=== PATIENT | female | born 1985 | race African-American/Black ===

== ENCOUNTER 2016-08-08 19:15 | Emergency (ER) | payer OTHER ==
[~2016-08-08 19:15] MED LIST: COG1 PO; ZIPR80CA PO
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
[2016-08-08 19:42] VITALS: BP 117/88; PULSE 115; RESP 24; O2SAT 99
== END 2016-08-08 20:04 ==
LOC: SED 19:15
DX: Z02.89 Encounter for other administrative examinations (principal)

== ENCOUNTER 2016-08-09 13:35 | Emergency (ER) | payer OTHER ==
[2016-08-09 13:38] VITALS: BP 127/89; PULSE 130; RESP 26; O2SAT 100
--- NOTE | 2016-08-09 14:37 | ED.REPORT ---
HPI-Psychiatric Illness Date of Service Aug 09, 2016 ED Provider: Doc,Ed MD History of Present Illness: non verbal, refuses to take the ativan, or any medication Sent because HR in [facility] was 144. In ER HR is 130 to 114 Nursing Notes Stated Complaint: MEDICAL CLEARANCE Chief Complaint: General Complaint Nursing Notes Reviewed: Yes Allergies: Coded Allergies: No Known Drug Allergies (Verified Allergy, Unknown, 01/06/12) Scheduled Ziprasidone-Expunged Drug, Do Not Renew! (Geodon-Expunged Drug, Do Not Renew!) 80 Mg Capsule 80 MG PO BID Scheduled PRN Benztropine Mes-Expunged Drug, Do Not Renew! (Benztropine Mes-Expunged Drug, Do Not Renew!) 1 Mg Tablet 1 MG PO Q8 PRN PRN take as needed for severe muscle spasms every 8 hours and advise your Dr if px continues General Time Seen by MD: 14:36 Chief Complaint Bizarre behavior Hx Obtained From: Police Onset Occurred: Yesterday Risk-Psychiatric Illness Risk Notes: unable to assess Suicide Risk Stratification RF Statements: Risk factors reviewed Past Medical History Past Medical History unable to obtain, patient is choosing non verbal Ambulatory Status Independent Review of Systems Unable to Obtain ROS Uncooperative Physical Exam Initial Vital Signs Vital Signs (First) Date Time Temp Pulse Resp B/P Pulse Ox O2 Delivery O2 Flow Rate FiO2 08/09/16 13:38 37.7 130 26 127/89 100 Room Air Initial VS: Reviewed, Vital signs abnormal Head / Eyes: Atraumatic, Normocephalic, PERRL ENT: Mucous membranes moist, Conjunctiva normal, No scleral icterus Neck: Supple, Non-tender, Full range of motion Respiratory: Breath sounds normal, Clear to auscultation, No respiratory distress Cardiovascular: Regular rate & rhythm, Heart sounds normal, Intact distal pulses Abdomen / GI: Soft, Non-tender, No guarding, No rebound, No distention Back: No CVA tenderness Lymphatic: No lymphadenopathy Extremities: Vascular intact, Neuro intact, No swelling, No tenderness Skin: Warm, Dry, No cyanosis General/Constitutional: Awake, Alert, No acute distress, Well appearing, Well developed, Well hydrated, Well nourished patient is now speaking but is not responding appropriately Abnormal Mood/Affect: Positive: Flat affect Respiratory / Chest: Atraumatic, Breath sounds NL, Breath sounds = bilat, No respiratory distress Cardiovascular: Heart rate NL, Regular rhythm, Heart sounds NL, No gallop Interpretation & Diagnostics Lab Results Interpretation Result Diagram: 08/09/16 1540 08/09/16 1540 Test 08/09/16 15:40 White Blood Count 16.5th/mm3 (3.8-10.1) Red Blood Count 4.98mil/mm3 (3.90-5.20) Hemoglobin 12.2g/dL (12.0-15.6) Hematocrit 38.8% (35.0-46.0) Mean Corpuscular Volume 77.9fL (81-100) Mean Corpuscular Hemoglobin 24.5pg (27.0-35.0) Mean Corpuscular Hemoglobin Concent 31.4% (32.0-37.0) Red Cell Distribution Width 17.8% (12.3-15.4) Platelet Count 461bil/L (150-400) Neutrophils (%) (Auto) 73.1% (40-74) Lymphocytes (%) (Auto) 19.3% (14-46) Monocytes (%) (Auto) 7.0% (4-12) Eosinophils (%) (Auto) 0.1% (0-5) Basophils (%) (Auto) 0.3% (0-3) Sodium Level 139mEq/L (134-144) Potassium Level 4.8mEq/L (3.5-5.2) Chloride Level 97mEq/L (97-108) Carbon Dioxide Level 20mmol/L (18-29) Blood Urea Nitrogen 15mg/dL (6-20) Creatinine 1.16mg/dL (0.57-1.00) Estimat Glomerular Filtration Rate 71mL/min (>59) Glucose Level 71mg/dL (60-99) Calcium Level 9.9mg/dL (8.5-10.1) Total Bilirubin 0.3mg/dL (0.0-1.2) Aspartate Amino Transf (AST/SGOT) 57U/L (0-50) Alanine Aminotransferase (ALT/SGPT) 22U/L (0-32) Alkaline Phosphatase 100U/L (25-150) Total Protein 8.9g/dL (6.4-8.4) Albumin 4.2g/dL (3.4-5.0) Thyroid Stimulating Hormone (TSH) 1.790uIU/mL (0.450-4.500) Human Chorionic Gonadotropin, Qual Neg (Negative) Hold Villalobos Top Tube Received (Received) Alcohol, Quantitative < 10mg/dL (0-10) Re-Eval/Medical Decision Med Decision/Clinical Course discussed with officers, will transport back to [facility] Discharge & Departure Impression: Primary Impression: Tachycardia Additional Impression: Medical clearance for incarceration Patient Instructions: Supraventricular Tachycardia (ED) Additional Instructions: Your heart rate is elevated at 114. It would be helpful if you would take some medications to help. Your blood pressure is normal at 127/89. Your respiratory rate is at 24 and you are sating at 100% on room air. I would suggest some haldiol and an ativan taper. You do not need to be up front but you do need to be alone until your behavior improves. Push fluids. Ensure at med pass. Lab results are still pending, will discuss them with you this week. Referrals: Zhane Castro (PCP) EDSupervising Provider for APC: Timbo Regalado MD copies to: Zhane Castro Sue ARNP Aug 09, 2016 14:37
[2016-08-09] MEDS ORDERED: 0.9% Sodium Chloride 1,000 ML IV ONE (14:45)
[2016-08-09 15:49] LABS: BASOPHILS % (AUTO) 0.3 % (0-3); EOSINOPHILS % (AUTO) 0.1 % (0-5); Mean Corpuscular Hemoglobin 24.5 pg (27.0-35.0); Mean Corpuscular Volume 77.9 fL (81-100); NEUTROPHILS % (AUTO) 73.1 % (40-74); Platelet Count 461 bil/L (150-400)
[2016-08-09 16:50] VITALS: BP 119/76; PULSE 110; RESP 22; O2SAT 100
== END 2016-08-09 16:52 ==
LOC: SED 13:35
DX: R00.0 Tachycardia, unspecified (principal); Z91.19 Patient's noncompliance with other medical treatment and regimen; Z02.89 Encounter for other administrative examinations
CPT/HCPCS: 36415; 80053; 84443; 84703; 85025; 93005; 99284; G0480

== ENCOUNTER 2016-08-13 01:01 | Emergency (ER) | payer OTHER ==
[~2016-08-13] VITALS: Ht 157.5 cm; Wt 125.0 kg
[2016-08-13 01:59] VITALS: BP 99/73; PULSE 108; RESP 16; O2SAT 97
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
[2016-08-13] MEDS ORDERED: 0.9% Sodium Chloride 1,000 ML IV ONE (02:48)
[2016-08-13 03:34] LABS: BASOPHILS % (AUTO) 0.8 % (0-3); EOSINOPHILS % (AUTO) 0.7 % (0-5); MONOCYTES % (AUTO) 9.5 % (4-12); Mean Corpuscular Hemoglobin 24.6 pg (27.0-35.0); Mean Corpuscular Volume 79.7 fL (81-100); NEUTROPHILS % (AUTO) 67.1 % (40-74); Platelet Count 436 bil/L (150-400)
[2016-08-13] MEDS: 0.9% Sodium Chloride 1,000 ML IV SCH ×2 (03:45→03:46)
[2016-08-13 06:05] VITALS: BP 125/83; PULSE 95; RESP 20; O2SAT 98
== END 2016-08-13 06:05 ==
LOC: SED 01:01
DX: F20.0 Paranoid schizophrenia (principal); Z91.19 Patient's noncompliance with other medical treatment and regimen
CPT/HCPCS: 36415; 80053; 83735; 85025; 96372; 99284; J7030; S0166

== ENCOUNTER 2016-08-17 01:20 | Emergency (ER) | payer OTHER ==
[~2016-08-17] VITALS: Ht 157.5 cm; Wt 127.3 kg
[2016-08-17 01:34] VITALS: PULSE 125; RESP 21; O2SAT 99
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
[2016-08-17] MEDS ORDERED: Haloperidol 5 mg/mL Inj IVPUSH ONE (03:25)
[2016-08-17 03:34] LABS: BASOPHILS % (AUTO) 0 % (0-3); EOSINOPHILS % (AUTO) 1 % (0-5); MONOCYTES % (AUTO) 11 % (4-12); Mean Corpuscular Hemoglobin 25.1 pg (27.0-35.0); Mean Corpuscular Volume 80.8 fL (81-100); NEUTROPHILS % (AUTO) 71 % (40-74); Platelet Count 424 bil/L (150-400)
[2016-08-17] MEDS: 0.9% Sodium Chloride 1,000 ML IV SCH ×2 (03:36→04:07)
[2016-08-17 03:46] LABS: Magnesium 2.3 mg/dL (1.6-2.6)
[2016-08-17] MEDS ORDERED: 0.9% Sodium Chloride 1,000 ML IV ONE (04:35)
[2016-08-17 04:52] VITALS: BP 146/71; PULSE 123; RESP 18; O2SAT 100
[2016-08-17 06:31] VITALS: BP 127/65; PULSE 104; RESP 17; O2SAT 94
== END 2016-08-17 06:30 | disposition home or self-care (01) ==
LOC: SED 01:20
DX: F20.0 Paranoid schizophrenia (principal); Z53.29 Procedure and treatment not carried out because of patient's decision for other reasons; Z02.89 Encounter for other administrative examinations
CPT/HCPCS: 80053; 83735; 85025; 96361; 96372; 96374; 96375; 99284; J1200; J1630; J2060; J7030; S0166